=== PATIENT | male | born 1995 | race Caucasian/White ===

== ENCOUNTER 2019-01-09 13:08 | Emergency (ER) | payer OTHER ==
[2019-01-09] MEDS ORDERED: HYDROcodone/ACETAMIN 5-325 MG* 1 TAB PO ONE (14:46)
--- NOTE | 2019-01-09 14:54 | UC ---
Back Pain HPI - HPI Summary HPI Summary: 23-year-old male comes in with a chief complaint of low back pain with pain radiating down the left leg. Pain started 5 days ago and the patient was working out in the gym and he was doing squats he felt a pop in his left sacroiliac low back area. Since that time he's had pain radiating down the left leg. Denies any weakness or numbness or difficulty controlling bowel or bladder. Pain is worse with any kind of range of motion of the low back and left leg. Patient has tried ibuprofen and hydrocodone and muscle relaxer with minimal relief. 1-2 months ago patient injured himself in the same location but that didn't up improving over time. - History of Current Complaint Chief Complaint: UCBackPain Stated Complaint: LOW BACK PAIN/STRAIN Time Seen by Provider: 01/09/19 14:35 Pain Intensity: 8 - Allergies/Home Medications Allergies/Adverse Reactions: Allergies Allergy/AdvReac Type Severity Reaction Status Date / Time anesthesia Allergy See Comment Uncoded 01/09/19 13:34 Home Medications: Home Medications Acetaminophen [Acetaminophen Extra Strength] 1,000 mg PO Q6H PRN 01/09/19 [ History Confirmed 01/09/19] Cyclobenzaprine TAB* [Flexeril 10 MG TAB*] 10 mg PO TID PRN 01/09/19 [History Confirmed 01/09/19] Hydrocodone/Acetaminophen [Hydrocodone/Acetaminophen 5-325 mg] 1 tab PO Q4H PRN 01/09/19 [History Confirmed 01/09/19] Ibuprofen TAB* [Advil TAB*] 800 mg PO Q6H PRN 01/09/19 [History Confirmed ] PMH/Surg Hx/FS Hx/Imm Hx Previously Healthy: Yes - Surgical History Surgical History: Yes Surgery Procedure, Year, and Place: endoscopic sinus surgery - Family History Known Family History: Positive: Non-Contributory - Social History Alcohol Use: Occasionally Substance Use Type: None Smoking Status (MU): Never Smoked Tobacco Review of Systems All Other Systems Reviewed And Are Negative: Yes Constitutional: Positive: Negative Skin: Positive: Negative Eyes: Positive: Negative ENT: Positive: Negative Respiratory: Positive: Negative Cardiovascular: Positive: Negative Gastrointestinal: Positive: Negative Genitourinary: Positive: Negative Motor: Positive: Other - SEE HPI Neurovascular: Positive: Negative Musculoskeletal: Positive: Other: - SEE HPI Neurological: Positive: Negative Psychological: Positive: Negative Is Patient Immunocompromised?: No Physical Exam Triage Information Reviewed: Yes Appearance: Well-Appearing, Well-Nourished, Pain Distress - MILD WITH ROM OF LOW BACK/LEFT LEG Vital Signs: Initial Vital Signs Temp 98 F 01/09/19 13:37 Pulse 54 01/09/19 13:37 Resp 15 01/09/19 13:37 BP 134/70 01/09/19 13:37 Pulse Ox 100 01/09/19 13:37 Vital Signs Reviewed: Yes Eye Exam: Normal Eyes: Positive: Conjunctiva Clear Neck: Positive: Supple Respiratory: Positive: Normal breath sounds Musculoskeletal: Positive: Other: - Patient is tender to palpation over the left sacroiliac joint and lower lumbar area. Patient has full range of motion and full strength of the legs. Normal sensation distally. Pain does increase with movement of the left leg. Neurological: Positive: Alert Psychological: Positive: Age Appropriate Behavior Skin Exam: Normal Back Pain Course/Dx - Course Course Of Treatment: Corporate Representative: Tez Kendall Daniel ([id number]) Welcome Center Attendant: TORREY ( DAGOANCE) Report Date: 01/09/2019 15:43:00 Report Status: Final ====== Start of Report Content Patient Name: CHRISTINA WHITAKER Medical Record#: [id number] Ordering Physician: Harish Burgess MD Acct.#: [id number] : Age: 23 Sex: M Location: [facility] Exam Date: 01/09/191446 ADM Status: REG ER Order Information: SP LUMBARSACRAL 4+ VWS Accession Number: [id number] CPT: 09770 HISTORY: LT LOWE PAIN S/P INJURY,+LT SCIATICA COMPARISONS: None relevant available at the time of dictation. VIEWS: 4 , Frontal, lateral, and bilateral oblique views of the lumbar spine. FINDINGS: ALIGNMENT: There is straightening of the normal lumbar lordosis. VERTEBRAL BODIES: The vertebral body heights are normal. The interpedicular distances are normal. JOINTS: The facet joints are normal. INTERVERTEBRAL DISCS: The intervertebral disc heights are normal. SOFT TISSUE: Unremarkable. OTHER: The pelvis is unremarkable. The lung bases are clear. IMPRESSION: STRAIGHTENING OF THE LUMBAR LORDOSIS. OTHERWISE UNREMARKABLE RADIOGRAPHS OF THE LUMBAR SPINE. ___ <Electronically signed by Tez Kendall MD in OV> 01/09/191538 Dictated By: eTz Kendall MD Dictated Date/Time: 01/09/191538 Transcribed Date/Time: 01/09/191538 Copy to: CC:No Primary Care Phys,NOPCP ; Harish Burgess MD Imaging - [facility] Imaging - [facility] Imaging - [facility] [address] [address] ph ([phone]) ph ([phone]) ph ([phone]) End of Report Content ========= I discussed the x-rays with the patient. Patient has no focal neurologic deficits. Plan is to continue the ibuprofen had lidocaine patches. Also Flexeril as needed and Percocet as needed. We discussed avoiding constipation with the Percocet. We also discussed if there is any weakness or numbness or difficulty controlling urine or bowels needs to get evaluated right away. Also patient given crutches here in clinic. Follow-up with sports medicine. - Differential Dx/Diagnosis Provider Diagnosis: Low back pain, Left lumbar radiculopathy, Left sided sciatica Discharge ED - Sign-Out/Discharge Documenting (check all that apply): Patient Departure All imaging exams completed and their final reports reviewed: Yes - Discharge Plan Condition: Stable Disposition: HOME Prescriptions: Cyclobenzaprine TAB* [Flexeril 10 MG TAB*] 10 mg PO TID PRN #15 tab MDD 3 PRN Reason: Pain - Moderate oxyCODONE/Acetamin 5/325 MG* [Percocet 5/325 TAB*] 1 tab PO Q6H PRN #20 tab MDD 4 PRN Reason: Pain - Moderate Patient Education Materials: Sciatica (ED), Acute Low Back Pain (ED), Lumbar Radiculopathy (ED), Lower Back Exercises (ED) Referrals: Sports Medicine [facility] [Provider Group] Additional Instructions: FOLLOW UP WITH SPORTS MEDICINE. GET REEVALUATED SOONER IF NOT IMPROVING OR GO TO THE EMERGENCY DEPARTMENT IF WORSE; PAIN, WEAKNESS, NUMBNESS, DIFFICULTY CONTROLLING BOWEL OR BLADDER OR ANY QUESTIONS OR CONCERNS. - Billing Disposition and Condition Condition: STABLE Disposition: Home
[2019-01-09 16:12] VITALS: BP 108/62
== END 2019-01-09 16:15 | disposition home or self-care (01) ==
LOC: UCCORT 13:08
DX: M54.16 Radiculopathy, lumbar region (principal); M54.5 Low back pain; M54.32 Sciatica, left side; Z88.4 Allergy status to anesthetic agent
CPT/HCPCS: 72110; 99203; G0463